=== PATIENT | male | born 1975 | race Caucasian/White ===

== ENCOUNTER 2017-08-31 05:19 | Inpatient (IN) | payer OTHER ==
[2017-08-25 12:20] VITALS: BMI 31.7
--- NOTE | 2017-08-29 08:20 | PREOPHP ---
DATE OF ADMISSION: 08/31/2017 His patient is being admitted electively on 08/31/[address] Joni Saeed. HISTORY OF PRESENT ILLNESS: This 42-year-old man was injured at his work. He developed low back pa in that is radiating down his left leg into his left foot. He has been disabled because of the pain . He has had difficulty walking and working. The patient is now scheduled for a lumbar spine surge ry because of the radiculopathy. CURRENT MEDICATIONS: The patient is currently taking the following medications. 1. Hydrochlorothiazide 25 mg a day. 2. Lisinopril 10 mg a day. 3. Omeprazole 40 mg a day. PAST MEDICAL HISTORY: Remarkable for hypertension, gastroesophageal reflux disease. ALLERGIES: HE HAS NO KNOWN DRUG ALLERGIES. PAST SURGICAL HISTORY: Right hand surgery for a laceration, cyst removed from 1 testicle. FAMILY HISTORY: Both parents are . Father of hypertension. Mother of complicati ons of diabetes. SOCIAL HISTORY: The patient does not smoke, does not drink alcohol. OCCUPATION: He worked in a restaurant. REVIEW OF SYSTEMS: CONSTITUTIONAL: No chills, no weight gain, no loss of appetite, no fever, no weakness, no weight lo ss, no fatigue. OPHTHALMOLOGIC: Negative. EARS, NOSE AND THROAT: Negative. CARDIORESPIRATORY: He denies any exertional chest pain, chest pressure, cough, ankle swelling. He has no history of heart disease or lung disease. GASTROINTESTINAL: Negative. HEMATOLOGIC AND LYMPHATICS: Negative. UROLOGIC: Negative. PHYSICAL EXAMINATION: GENERAL: At this time reveals a well-developed man in no apparent distress. VITAL SIGNS: Temperature 98.3, pulse of 91, blood pressure 135/95. HEENT: Head normocephalic. Eyes: Extraocular muscles intact. NOSE AND MOUTH: Normal. NECK: Supple. No neck vein distention. LUNGS: Clear to auscultation. HEART: Regular rhythm. No murmurs, gallops or rubs. ABDOMEN: Soft, nontender, no masses or megaly. EXTREMITIES: No peripheral edema. NEUROLOGIC: Grossly intact. IMPRESSION: This patient is cleared for surgery. I will follow the patient along with you postoper atively. Dictated By: HAILEE JAY MD, ND/[place] Conf#: [id number] [facility]#: [id number]
[~2017-08-31] VITALS: Ht 175.3 cm; Wt 97.0 kg
[2017-08-31] VITALS (27 sets, daily range): BP systolic 108–139; BP diastolic 60–95; PULSE 62–80; RESP 12–21; Ht 175.3 cm; Wt 97.0 kg
[~2017-08-31 05:19] MED LIST: HYDR25TA6 PO; LISI10TA2 PO
[2017-08-31] MEDS ORDERED: LACTATED RINGER'S 1,000 ML IV* SCH ×2 (06:15)
[2017-08-31] MEDS ORDERED: CEFAZOLIN 2 GM/50 ML (PMX) 50 ML IVPB ONE (06:15)
[2017-08-31] MEDS ORDERED: POLYMYXIN/BACITRACIN 1L IRRIG ONE (06:35)
[2017-08-31] MEDS ORDERED: GELATIN SIZE 100 SPONGE ONE (06:38)
[2017-08-31] MEDS ORDERED: THROMBIN 5000 UNIT VIAL ONE (06:39)
[2017-08-31] MEDS ORDERED: BUPIVACAINE 0.25% (MPF) 30 ML INJ ONE (06:39)
--- NOTE | 2017-08-31 06:55 | HPN ---
Date/Time of Note Date/Time of Note DATE: 08/31/17 TIME: 06:54 Interval H&P Admission Note Pt. seen H&P reviewed: No system changes RICHARD HERNANDEZ MD Aug 31, 2017 06:55
[2017-08-31] MEDS ORDERED: CEFAZOLIN 1 GM INJ ONE (07:00)
[2017-08-31] MEDS ORDERED: MIDAZOLAM 1 MG/ML 2 ML INJ ONE (07:05)
[2017-08-31] MEDS ORDERED: hydrALAzine 20 MG INJ ONE (07:32)
[2017-08-31] MEDS ORDERED: ROCURONIUM 50 MG INJ ONE (09:23)
[2017-08-31] MEDS ORDERED: ONDANSETRON 4 MG INJ ONE (09:23)
[2017-08-31] MEDS ORDERED: LIDOCAINE 2% (SDV) 5 ML INJ ONE (09:23)
[2017-08-31] MEDS ORDERED: PROPOFOL 20 ML ONE (09:23)
--- NOTE | 2017-08-31 10:10 | SIPON ---
Date/Time of Note Date/Time of Note DATE: 08/31/17 TIME: 10:07 Operative Report Preoperative Diagnosis Lumbar spinal stenosis at L3 and L4 Herniated lumbar disc L4-5 on the right (foraminal) Postoperative Diagnosis Same Operation/Procedure Performed Central decompressive laminectomy at L3 Central decompressive laminectomy at L4 Microdiscectomy L4-5 on the right Baxano transforaminal root decompression L4 on the right Medial facetectomy and foraminotomy L3-4 and L4-5 bilateral Cosmetic wound closure (11 cm) Lateral localizing lumbar radiographs (2) Intraoperative nerve monitoring (90 minutes) Surgeon see signature line family medicine physician assistant Rosio HERNÁNDEZ Anesthesia: general Estimated blood loss: 50 - 100 ml's Transfusion Required none Specimen Spinous processes of L3 and L4 Herniated disc L4-5 on the right Grafts/Implants none Complications none RICHARD HERNANDEZ MD Aug 31, 2017 10:10
[2017-08-31] MEDS ORDERED: HYDROCODONE/APAP (5/325) TAB PO PRN (10:30)
[2017-08-31] MEDS ORDERED: ZOLPIDEM 5 MG TAB PO PRN (10:30)
[2017-08-31] MEDS ORDERED: ONDANSETRON 4 MG INJ IV PRN (10:30)
[2017-08-31] MEDS ORDERED: ACETAMINOPHEN 325 MG TAB PO PRN (10:30)
[2017-08-31] MEDS ORDERED: NALOXONE (0.4 MG/ML) INJ IV PRN (10:30)
[2017-08-31] MEDS ORDERED: NACL 0.9% 3 ML SYG IV SCH (10:30)
[2017-08-31] MEDS ORDERED: DIAZEPAM 5 MG/ML SYG IM PRN (10:30)
[2017-08-31] MEDS ORDERED: TRIMETHOBENZAMIDE 100 MG/ML VIAL IM PRN (10:30)
[2017-08-31] MEDS ORDERED: DIPHENHYDRAMINE 50 MG CAP PO PRN (10:30)
[2017-08-31] MEDS ORDERED: BETHANECHOL 25 MG TAB PO PRN (10:30)
[2017-08-31] MEDS ORDERED: HYDROmorphONE 0.2 MG/ML PCA IV SCH (10:30)
[2017-08-31] MEDS ORDERED: CEPASTAT LOZENGE MT PRN (10:30)
[2017-08-31] MEDS ORDERED: AL HYDROX/MG HYDROX/SIMETH 30 ML CUP PO PRN (10:30)
[2017-08-31] MEDS ORDERED: PROCHLORPERAZINE 10 MG TAB PO PRN (10:30)
[2017-08-31] MEDS ORDERED: DIAZEPAM 5 MG TAB PO PRN (10:30)
[2017-08-31] MEDS: HYDROCODONE/APAP (5/325) TAB PO PRN (10:45)
--- NOTE | 2017-08-31 11:18 | OPR ---
DATE OF OPERATION: 08/31/2017 PREOPERATIVE DIAGNOSES: 1. Lumbar spinal stenosis at L3 and L4. 2. Herniated disk L4-5 on the right (foraminal). POSTOPERATIVE DIAGNOSES: 1. Lumbar spinal stenosis at L3 and L4. 2. Herniated disk L4-5 on the right (foraminal). OPERATIVE PROCEDURES: On 08/31/2017, the patient underwent the following operative procedures: 1. Central decompressive laminectomy at L4. 2. Central decompressive laminectomy at L3. 3. Microdiskectomy L4-5 on the right. 4. Baxano transforaminal root decompression, L4 on the right. 5. Medial facetectomy and foraminotomy, L3-4 and L4-5 bilaterally. 6. Cosmetic wound closure (11 cm). 7. Lateral localizing lumbar radiographs (2). 8. Intraoperative nerve monitoring (90 minutes). SURGEON: Joni Saeed MD RIDING DOUBLE: BETTY Lundberg ANESTHESIA: Endotracheal by Dr. Crane ESTIMATED BLOOD LOSS: 75 mL -- none replaced. DRAINS: Two medium Hemovac drains employed. COMPLICATIONS: None. PERTINENT HISTORY AND PHYSICAL: This is a 42-year-old male who sustained an injury to his back in t he course of his employment on 08/21/2016. He has had extensive care since that time, has remained symptomatic with low back and bilateral leg pain which has been unrelieved by conservative managemen t. He has undergone a number of diagnostic studies including an MRI of the lumbar spine, which demo nstrated canal stenosis at L3 and L4, along with a disk herniation at L4-5 on the right (foraminal). Treatment options were discussed with the patient and family, who elected to proceed with surgery. OPERATIVE FINDINGS AT SURGERY: A moderately severe central stenosis at L4 and L3 was confirmed, elham ng with a foraminal herniation of the L4-5 disk on the right. Baseline intraoperative nerve monitor ing revealed a decrease in the L3 potential on the left of 20%, the L4 potentials bilaterally of 40% and the left L5 potential of 50%. These all returned to normal at the completion of the surgery. OPERATIVE PROCEDURE: With the patient in supine position after satisfactory induction of general en dotracheal anesthesia by Dr. Crane, the patient was turned to the prone kneeling position onto the Peyman frame. All pressure points were carefully padded. The back was prepped and draped in usua l sterile fashion. Athrombic pumps were applied to the legs below the knees to prevent venous stasi s during and after procedure. An indwelling Mckinnon catheter was also placed preoperatively to facili kendall bladder drainage during and after the procedure. Two spinal needles were placed next to what w as felt to be the spinous process of L3 and L4, and a lateral roentgenogram was taken which confirme d anatomic localization. An 11 cm incision then carried out in the midline over the spinous process of L3 and L4 after the skin was infiltrated with 0.25% Marcaine without epinephrine for postoperati ve analgesia. Superficial retractors were placed and hemostasis secured with electrocautery. Throu ghout procedure, copious amounts of antibacterial irrigating solution were used to periodically irri gate the wound. The fascia was incised in midline with a hot knife and a bilateral subperiosteal di ssection carried out at L3 and L4. Deep retractors were placed and deep hemostasis secured with amarilys ctrocautery. A second intraoperative radiograph was taken with Blossom clamps placed in what was fel t to be the spinous process of L3 and L4. This was confirmed with second x-ray. A central decompre ssive laminectomy at L4 and L3 was then carried out using a Ede right-angle bone rongeur, Shani campo rongeur, Kerrison punches and curettes. Ligamentum flavum was excised with sharp dissection. The operating microscope was then moved into place. A medial facetectomy and foraminotomy was then acc omplished at L3-4 and L4-5 bilaterally using small hand osteotome, mallet, Kerrison punches and cure ttes. At this point, there was still some distal foraminal stenosis at L4 on the right, and the Bax ano instrumentation was brought onto the field. The Ipsi probe was placed into the right L4 foramen , and the guidewire passed in the usual fashion. The neuro probe was then inserted to confirm isola tion of the exiting L4 nerve root. With this having been assured, the 7.5 mm Convertigo rasp was insert ed into the foramen and multiple reciprocations carried out to enlarge the posterior aspect of the f oramen. The instrumentation was withdrawn and 25 mL of irrigating solution used to flush the forame n. The epidural hemostasis was secured with bipolar electrocautery on low setting. The L5 nerve ro ot on the right was then mobilized medially and protected with Louis'Carlton nerve retractor using microd issection technique. This revealed a herniation of the L4-5 disk, extending out into the foramen. The 15-blade knife used to cut a rectangular window in the annulus and posterior longitudinal ligame nt, and multiple degenerative disk fragments were harvested with pituitary rongeurs and sent to [facility] pathologic study. Additional fragments were harvested using Gonzalez curettes and Kimmy curettes. A thorough search of the floor of the canal was made with an arthroscopic probe. No china tional fragments were encountered. The epidural hemostasis was once again secured with bipolar elec trocautery on low setting. The anesthesiologist was asked to perform a Valsalva maneuver at 40 mmHg and no spinal fluid leak was noted. The wound was then closed in layers over 2 medium Hemovac drai ns, one below the fascia and one above the fascia using #1 Stratafix sutures on the deep paralumbar musculature and deep fascia of the back, 2-0 Stratafix sutures in subcutaneous tissue, and a 4-0 Omer ryl subcuticular cosmetic closing suture on the skin. Dermabond and sterile compressive dressings w ere applied. The patient tolerated procedure well, was then turned to supine position onto his bed and extubated by Dr. Crane. He was transported to recovery room in satisfactory condition. At the conclusion of the procedure, sponge, instrument and needle counts were all correct. NEED FOR CASINO BANKER: During this spinal surgical procedure, my market research assistant was used to retrac t and protect the spinal nerves and dural sac. My market research assistant also employed the suction catheters to e vacuate blood from the surgical field to improve visualization of the neural structures. The assista nt was medically necessary to facilitate the completion of the surgery in a safe and expeditious man ner. State of [place] regulations, as well as hospital bylaws, preclude the use of non-licensed [facility] care personnel such as operating room technicians, to perform these functions. Throughout the procedure, neural monitoring was carried out by [employer] including EMG, SSEP and MEP monitoring of the L3, L4, L5 and S1 nerve roots bilaterally, along with spinal cord potentials. These were interpreted by neurologist employed by [employer]. Dictated By: JONI SAEED MD TM/NTS Conf#: [id number] [facility]#: [id number] CC: HAILEE JAY MD; JOSSELIN HERNÁNDEZ;*EndCC*
[2017-08-31] MEDS: CEFAZOLIN 1 GM/50 ML (PMX) 50 ML IVPB SCH ×2 (12:27→18:48)
[2017-08-31] MEDS: DEXTROSE 5%-0.45% NACL 1,000 ML IV SCH ×3 (12:28→23:32)
--- NOTE | 2017-08-31 18:00 | RADRPT ---
PROCEDURE: XR Lumbar Spine one view. CLINICAL INDICATION: Low back pain. Intraoperative. TECHNIQUE: Prone portable cross-table lateral. COMPARISON: Prior study done earlier the same day. FINDINGS: For the purposes of this report, the last apparent true disc level is considered to be L5-S1. Based on this, the posterior surgical instruments are present overlying the spinous processes of L3 and L 4. IMPRESSION: 1. Intraoperative imaging as described above. RPTAT: QQ .Praveen Lopez MD, MD Date Time Electronically viewed and signed by .Praveen Lopez MD, MD on 08/31/2017 17:59 .R/
--- NOTE | 2017-08-31 18:00 | RADRPT ---
PROCEDURE: XR Lumbar Spine one view. CLINICAL INDICATION: Low back pain. Intraoperative. TECHNIQUE: Prone portable cross-table lateral. COMPARISON: No prior studies are available for comparison. FINDINGS: For the purposes of this report, the last apparent true disc level is considered to be L5-S1. Based on this, the posterior needle markers are present overlying the upper L3 spinous process and the up per L4 spinous process. IMPRESSION: 1. Intraoperative imaging as described above. RPTAT: QQ .Praveen Lopez MD, Date Time Electronically viewed and signed by .Praveen Lopez MD, on 08/31/2017 18:00 .R/
[2017-08-31] MEDS: RANITIDINE 150 MG TAB PO SCH (21:04)
[2017-09-01 00:19] VITALS: BP 119/68; RESP 20
[2017-09-01] MEDS: CEFAZOLIN 1 GM/50 ML (PMX) 50 ML IVPB SCH ×2 (00:29→05:45)
[2017-09-01 02:59] VITALS: BP 109/73; RESP 18
[2017-09-01 05:20] LABS: HEMATOCRIT 34.5 % (42.0-52.0); HEMOGLOBIN 11.7 g/dl (14.0-18.0)
[2017-09-01 05:58] LABS: CALCIUM 8.5 mg/dl (8.4-10.2); CREATININE 0.79 mg/dl (0.61-1.24); POTASSIUM 3.6 mmol/L (3.5-5.1)
--- NOTE | 2017-09-01 07:12 | PN ---
Date/Time of Note Date/Time of Note DATE: 09/01/17 TIME: 07:07 Assessment/Plan Lines/Catheters IV Catheter Type (from Nrs): Peripheral IV Mckinnon in Place (from Nrs): Yes Subjective 24 Hr Interval Summary The patient is postop day #1 following a decompressive laminectomy at L3 and L4 with microdiscectomy L4-5 on the right.He is resting comfortably. Neurovascular structures are intact distally. A.m. lab work is unremarkable. His Hemovac output was 60 cc this shift and was left in place. He has a Mckinnon catheter in place which will be discontinued. Physical therapy will mobilize him as tolerated. Exam/Review of Systems Vital Signs Vitals Vital Signs Date Time Temp Pulse Resp B/P Pulse Ox O2 Delivery O2 Flow Rate FiO2 09/01/17 05:00 16 09/01/17 02:59 98.6 109/73 98 09/01/17 00:19 70 08/31/17 20:00 Nasal Cannula 2.0 Intake and Output 08/31/17 08/31/17 09/01/17 15:00 23:00 07:00 Intake Total 1450 ml 1390 ml 1850 ml Output Total 225 ml 1700 ml 1860 ml Balance 1225 ml -310 ml -10 ml Results Result Diagram: 09/01/17 0425 09/01/17 0435 RICHARD HERNANDEZ MD Sep 01, 2017 07:12
[2017-09-01 07:34] VITALS: BP 107/70; PULSE 60; RESP 16
[2017-09-01 07:54] VITALS: BP 107/70; RESP 16
[2017-09-01] MEDS ORDERED: BETHANECHOL 25 MG TAB PO PRN (08:00)
--- NOTE | 2017-09-01 08:36 | CONS ---
DATE OF ADMISSION: 08/31/2017 DATE OF CONSULTATION: MEDICAL CONSULTATION Thank you, Dr. Hernandez, for asking me to participate in medical management of this patient. REASON FOR CONSULTATION: Manage the patient's hypertension and gastroesophageal reflux disease. HISTORY OF PRESENT ILLNESS: This 42-year-old man was injured at work. He developed low back pain t hat was radiating down his left leg into his left foot. The patient was disabled because of the fran n and he was having difficulty walking. He was having difficulty at work. The patient did undergo surgery today which included a central decompressive laminectomy at L4, a central decompressive lami nectomy at L3 and microdiscectomy at the L4-5 level on the right. Patient preoperatively was diagno sed with lumbar spine stenosis at L3 and L4, and a herniated disk at the L4-5 level on the right. T he patient is awake and alert. He is now postop surgery. He denies any chest pain or shortness of breath. The patient said that he did take his antihypertensive medication this morning. PAST MEDICAL HISTORY: Remarkable for hypertension and gastroesophageal reflux disease. ALLERGIES: HE HAS NO KNOWN DRUG ALLERGIES. PAST SURGICAL HISTORY: Right hand surgery for laceration and a cyst removed from 1 testicle. FAMILY HISTORY: Both parents are . Father of complications of hypertension. Mother d ied of complications of diabetes. SOCIAL HISTORY: The patient does not smoke, does not drink alcohol. Occupation: He worked in a [employer]. PHYSICAL EXAMINATION: GENERAL: At this time, reveals a well-developed man in no apparent distress. VITAL SIGNS: Pulse of 70, respirations 18, blood pressure 124/75, O2 saturation 92% on room air. HEENT: Head normocephalic. Eyes: Extraocular muscles intact. NOSE AND MOUTH: Normal. NECK: Supple. No neck vein distention. LUNGS: Clear to auscultation. HEART: Regular rhythm. No murmurs, gallops or rubs. ABDOMEN: Soft, nontender, no masses or megaly. EXTREMITIES: No peripheral edema. IMPRESSION: This patient is stable after surgery today. His blood pressure is under good control. I will follow the patient and manage his hypertension and his gastroesophageal reflux disease. PLAN: 1. Resume routine medications. 2. Check labs in the morning. 3. Postop lumbar spine surgery protocol. 4. I will follow the patient along with you. Dictated By: HAILEE JAY MD ND/NTS Conf#: [id number] DID#: [id number] CC: RICHARD HERNANDEZ MD;*End*
[2017-09-01] MEDS: RANITIDINE 150 MG TAB PO SCH (08:52)
[2017-09-01] MEDS: FERROUS SULFATE (EC) 325 MG TAB PO SCH ×2 (08:54→12:58)
[2017-09-01] MEDS: HYDROCODONE/APAP (5/325) TAB PO PRN ×2 (08:54→15:44)
[2017-09-01] MEDS ORDERED: ASCORBIC ACID 500 MG TAB PO SCH (09:00)
[2017-09-01] MEDS ORDERED: DOCUSATE SODIUM 100 MG CAP PO SCH (09:00)
--- NOTE | 2017-09-01 09:46 | CONS ---
Date/Time of Note Date/Time of Note DATE: 09/01/17 TIME: 09:44 Assessment/Plan Assessment/Plan Chief Complaint/Hosp Course 1. This patient is now one day postop a lumbar spine surgery for spinal stenosis. He is up walking with physical therapy. 2. His blood pressure is well controlled. I am holding his antihypertensive medication for now. I explained to him that his blood pressure was low normal and that we are holding his blood pressure medication for now. Problems: Consultation Date/Type/Reason Admit Date/Time Aug 31, 2017 at 05:19 Initial Consult Date Type of Consultation: Medicine 24 HR Interval Summary Free Text/Dictation He is up walking with physical therapy. Constitutional: improved, no complaints Exam/Review of Systems Vital Signs Vitals Vital Signs Date Time Temp Pulse Resp B/P Pulse Ox O2 Delivery O2 Flow Rate FiO2 09/01/17 07:54 98.5 60 16 107/70 97 08/31/17 20:00 Nasal Cannula 2.0 Intake and Output 08/31/17 08/31/17 09/01/17 15:00 23:00 07:00 Intake Total 1450 ml 1390 ml 1850 ml Output Total 225 ml 1700 ml 1860 ml Balance 1225 ml -310 ml -10 ml Exam Constitutional: alert, oriented, well developed ENMT: nl external ears & nose, nl lips & teeth, nl nasal mucosa & septum Respiratory: clear to auscultation, normal air movement Cardiovascular: regular rate and rhythm Musculoskeletal: nl extremities to inspection Results Result Diagram: 09/01/17 0425 09/01/17 0435 Results 24 hrs Laboratory Tests Test 09/01/17 04:25 09/01/17 04:35 Hemoglobin 11.7 L Hematocrit 34.5 L Sodium Level 141 Potassium Level 3.6 Chloride Level 99 Carbon Dioxide Level 32 H Anion Gap 14 Blood Urea Nitrogen 11 Creatinine 0.79 Glucose Level 114 Calcium Level 8.5 Medications Medications Current Medications Dextrose/Sodium Chloride (D5-1/2ns) 1,000 ml @ 100 mls/hr Q10H IV Last administered on 08/31/17t 23:32; Admin Dose 100 MLS/HR; Start 08/31/17 at 10: 03 Acetaminophen/ Hydrocodone Bitart ([place] (5/325)) 1 tab Q4H PRN PO PAIN LEVEL 1 -5; Start 08/31/17 at 10:30 Acetaminophen/ Hydrocodone Bitart ([place] (5/325)) 2 tab Q4H PRN PO PAIN LEVEL 6 -10 Last administered on 09/01/17 08:54; Admin Dose 2 TAB; Start 08/31/17 at 10:30 Zolpidem Tartrate (Ambien) 5 mg HS PRN PO INSOMNIA; Start 08/31/17 at 10:30 Prochlorperazine (Compazine) 10 mg Q4H PRN PO NAUSEA AND/OR VOMITING; Start at 10:30 Trimethobenzamide HCl (Tigan) 200 mg Q4H PRN IM NAUSEA AND/OR VOMITING; Start 08/31/17 at 10:30 Ondansetron HCl (Zofran Inj) 4 mg Q6H PRN IV NAUSEA AND/OR VOMITING Last administered on 08/31/17 13:11; Admin Dose 4 MG; Start 08/31/17 at 10:30 Al Hydrox/Mg Hydrox/Simethicone (Mag-Al Plus) 15 ml Q4H PRN PO CONSTIPATION; Start 08/31/17 at 10:30 Docusate Sodium (Colace) 100 mg BID PO Last administered on 09/01/17 08:53; Admin Dose 100 MG; Start 09/01/17 at 09:00 Acetaminophen (Tylenol Tab) 650 mg Q4H PRN PO TEMP GREATER THAN 101F OR HAYES; Start 08/31/17 at 10:30 Ascorbic Acid (Vitamin C) 1,000 mg BID PO Last administered on 09/01/17 08:53 ; Admin Dose 1,000 MG; Start 09/01/17 at 09:00 Ferrous Sulfate (Ferrous Sulfate (Ec)) 325 mg TID PO Last administered on 09/01 08:54; Admin Dose 325 MG; Start 09/01/17 at 09:00 Ranitidine HCl (Zantac) 150 mg BID PO Last administered on 09/01/17 08:52; Admin Dose 150 MG; Start 08/31/17 at 21:00 Diazepam (Valium) 5 mg Q4H PRN PO MUSCLE SPASMS; Start 08/31/17 at 10:30 Diazepam (Valium) 5 mg Q4H PRN IM MUSCLE SPASMS; Start 08/31/17 at 10:30 Phenol (Cepastat Lozenge) 1 lozenge PRN PRN MT SORE THROAT; Start 08/31/17 at 10:30 Diphenhydramine HCl (Benadryl) 50 mg Q6H PRN PO PRURITUS; Start 08/31/17 at 10 :30 Hydromorphone HCl (Dilaudid [employer] OFFICE CLERK) Q4PCA IV Last administered on 08/31/17t 10: 29; Admin Dose 6 MG; Start 08/31/17 at 10:30 Naloxone HCl (Narcan) 0.2 mg Q2M PRN IV RR 8 BREATHS/MIN OR LESS; Start at 10:30 Bethanechol Chloride (Urecholine) 25 mg PRN PRN PO UNABLE TO VOID; Start 09/01 at 08:00 HAILEE JAY MD Sep 01, 2017 09:46
[2017-09-01 10:55] LABS: ADD UMIC YES; UR ASCORBIC ACID NEGATIVE (NEGATIVE); UR BILIRUBIN (Dip) NEGATIVE (NEGATIVE); UR BLOOD (Dip) 1+ mg/dL (NEGATIVE); UR CLARITY CLEAR (CLEAR); UR COLOR YELLOW (YELLOW); UR GLUCOSE (Dip) NEGATIVE (NEGATIVE); UR KETONES (Dip) NEGATIVE (NEGATIVE); UR LEUKOCYTE ESTERASE (Dip) NEGATIVE Leu/ul (NEGATIVE); UR MUCUS FEW /HPF (NONE SEEN); UR NITRITE (Dip) NEGATIVE (NEGATIVE); UR RBC 1 /HPF (0-5); UR SPECIFIC GRAVITY (Dip) 1.008 (1.003-1.030); UR TOTAL PROTEIN (Dip) NEGATIVE (NEGATIVE); UR UROBILINOGEN (Dip) NEGATIVE (NEGATIVE)
[2017-09-01 11:54] VITALS: BP 106/69; PULSE 65; RESP 16
[2017-09-01 13:52] VITALS: BP 130/78; RESP 18
--- NOTE | 2017-09-01 17:14 | PDOCDIS ---
Discharge Instructions DIAGNOSIS Discharge Diagnosis lumbar spinal stenosis CONDITION Patient Condition: Good HOME CARE INSTRUCTIONS: Diet Instructions: Reduced Sodium ACTIVITY: Activity Restrictions: Slowly Increase Activity Avoid heavy lifting Bathing Restrictions: Sponge Bath FOLLOW UP/APPOINTMENTS Follow-up Plan HAILEE Ruelas MD Sep 01, 2017 17:13
== END 2017-09-01 20:00 | disposition home or self-care (01) | DRG 520 ==
LOC: REC 05:19 → MS1 11:05
PROVIDERS: ADMIT Orthopaedic Surgery; ATTEND Orthopaedic Surgery
PROC: 0SB20ZZ Excision of Lumbar Vertebral Disc, Open Approach (ICD-10-PCS; 2017-08-31)
PROC: 01NB0ZZ Release Lumbar Nerve, Open Approach (ICD-10-PCS; principal; 2017-08-31 07:00)
DX: M51.16 Intervertebral disc disorders with radiculopathy, lumbar region (principal); I10 Essential (primary) hypertension; M48.061 Spinal stenosis, lumbar region without neurogenic claudication; K21.9 Gastro-esophageal reflux disease without esophagitis
CPT/HCPCS: 72020; 80048; 81001; 85014; 85018; 86850; 86900; 86901; 86920; 87086; 97116; 97162; 97530; J0360; J0690; J1170; J2250; J2405; J3010; J7042; J7120